=== PATIENT | female | born 1955 | race Caucasian/White ===

== ENCOUNTER 2017-04-21 17:59 | Emergency (ER) | payer OTHER ==
[2017-04-21] MEDS ORDERED: SULFAMETHOXAZOLE/TRIMETHOPRIM 800-160 MG TABLET PO ONE (19:56)
[2017-04-21] MEDS ORDERED: CEPHALEXIN 500 MG CAPSULE PO ONE (19:56)
[2017-04-21] MEDS ORDERED: HYDROCODONE/ACETAMINOPHEN 5-325 MG (6 TAB/ER DISP) PO PRN (19:56)
--- NOTE | 2017-04-21 20:00 | ER Document Report ---
ED Skin Rash/Insect Bite/Abscs - General Chief Complaint: Skin Problem Stated Complaint: POSSIBLE INFECTION ON RIGHT SIDE Time Seen by Provider: 04/21/17 18:40 Mode of Arrival: Ambulatory Information source: Patient Notes: 61-year-old female presented to ED for a abscess to her right abdomen. She states she noticed it about 3 weeks ago and has slowly grown. She states in January she noticed a mole that was "growing inside and she started to the preformer impregnated fabrics to make no comments about it. About 2 or 3 days ago this area got much better became more painful and itching. TRAVEL OUTSIDE OF THE [place] IN LAST 30 DAYS: No - HPI Patient complains to provider of: Tender/swollen area Onset: Other Onset/Duration: Gradual - See above Quality of pain: Achy, Sharp Severity: Moderate Pain Level: 3 Skin Character: Abscess Quality of rash: Itchy, Painful Identify cause: No Exacerbated by: Denies Relieved by: Denies Similar symptoms previously: Yes Recently seen / treated by doctor: No - Related Data Allergies/Adverse Reactions: No Known Allergies Allergy (Verified 04/21/17 20:06) Past Medical History - General Information source: Patient - Social History Smoking Status: Current Every Day Smoker Cigarette use (# per day): Yes - Half pack per day Chew tobacco use (# tins/day): No Smoking Education Provided: Yes - Less than 2 minutes Frequency of alcohol use: None Drug Abuse: None Occupation: [employer] Lives with: Family Family History: CAD, DM, Hyperlipidemia, Hypertension, Malignancy, Thyroid Disfunction. denies: Arthritis, COPD, CVA Patient has suicidal ideation: No Patient has homicidal ideation: No - Past Medical History Cardiac Medical History: Reports: Hx Hypercholesterolemia, Hx Hypertension Pulmonary Medical History: Reports: None EENT Medical History: Reports: None Neurological Medical History: Reports: None Endocrine Medical History: Reports: None Renal/ Medical History: Reports: None Malignancy Medical History: Reports: None GI Medical History: Reports: None Musculoskeltal Medical History: Reports None Skin Medical History: Reports Hx Cellulitis Psychiatric Medical History: Reports: None Traumatic Medical History: Reports: None Infectious Medical History: Reports: None Surgical Hx: Negative Past Surgical History: Reports: None Review of Systems - Review of Systems Constitutional: No symptoms reported EENT: No symptoms reported Cardiovascular: No symptoms reported Respiratory: No symptoms reported Gastrointestinal: No symptoms reported Genitourinary: No symptoms reported Female Genitourinary: No symptoms reported Musculoskeletal: No symptoms reported Skin: Other - Swollen red area to the right lateral abdomen Hematologic/Lymphatic: No symptoms reported Neurological/Psychological: No symptoms reported -: Yes All other systems reviewed and negative Physical Exam - Vital signs Vitals: Temp Pulse Resp BP Pulse Ox 98.0 F 60 20 173/76 H 100 04/21/17 18:15 04/21/17 18:15 04/21/17 18:15 04/21/17 18:15 04/21/17 18:15 Interpretation: Normal - General General appearance: Appears well, Alert - HEENT Head: Normocephalic, Atraumatic Eyes: Normal Pupils: PERRL - Respiratory Respiratory status: No respiratory distress Chest status: Nontender Breath sounds: Normal Chest palpation: Normal - Cardiovascular Rhythm: Regular Heart sounds: Normal auscultation Murmur: No - Abdominal Inspection: Other - Abscess to the right lateral abdomen Distension: No distension Bowel sounds: Normal Tenderness: Tender - Abscess Organomegaly: No organomegaly - Back Back: Normal, Nontender - Extremities General upper extremity: Normal inspection, Nontender, Normal color, Normal ROM , Normal temperature General lower extremity: Normal inspection, Nontender, Normal color, Normal ROM , Normal temperature, Normal weight bearing. No: Cherelle's sign - Neurological Neuro grossly intact: Yes Cognition: Normal Orientation: AAOx4 [place] Coma Scale Eye Opening: Spontaneous [place] Coma Scale Verbal: Oriented [place] Coma Scale Motor: Obeys Commands [place] Coma Scale Total: 15 Speech: Normal Motor strength normal: LUE, RUE, LLE, RLE Sensory: Normal - Psychological Associated symptoms: Normal affect, Normal mood - Skin Skin Temperature: Warm Skin Moisture: Dry Skin Color: Normal Skin irregularity: Abscess - Right lateral abdomen Location of irregularity: Abdomen Irregularity with: Swelling, Tenderness, Warmth Course - Re-evaluation Re-evalutation: 04/22/17 02:23 Abscess cleaned well with surgical scrub and open with knife large amount of purulent drainage. Wound was packed with iodoform and a sterile dressing applied. Patient instructed to remove the iodoform in 48 hours and to follow- up with the ED for any increase in pain redness or swelling. Patient was treated with Keflex and Septra and [place] dispense back and discharged home to follow-up with primary doctor. - Vital Signs Vital signs: Temp Pulse Resp BP Pulse Ox 98.3 F 57 L 18 149/62 H 98 04/21/17 20:03 04/21/17 20:03 04/21/17 20:03 04/21/17 20:03 04/21/17 20:03 Procedures - Incision and Drainage Right Lateral Abdomen Type: Simple Anesthetic type: 1% Lidocaine mL's of anesthetic: 6 Blade size: 11 I&D procedure: Betadine prep applied, Iodoform packing placed, Sterile dressing applied Incision Method: Incision made by scalpel Amount/type of drainage: Large amount of purulent drainage Discharge - Discharge Clinical Impression: abscess right upper abdomen subcutaneous Condition: Stable Disposition: HOME, SELF-CARE Instructions: Family Physicians / Practices Additional Instructions: ABSCESS: You have an abscess (boil). This a pus-forming infection, usually due to staph. Some boils may be left to drain on their own, but most require lancing. From the time the tender lump first appears, it may be three or four days before the abscess is ready to randy. Local heat and rest help at this stage of treatment. An antibiotic may prevent spread of the infection. Once the abscess is opened, packing may be placed into it. This is done so pus is not sealed inside by premature closure of the cavity. The packing will be removed at your follow-up visit or you may be advised to remove it yourself at home. Sometimes this packing must be replaced a few times during healing. The wound will heal with surprisingly little scar. Depending on the size and location of an abscess, healing can take one to four weeks. You may shower and wash the area around the incision site two or three times a day. Antibiotics may be prescribed, but are usually not necessary after an abscess has been drained. If you develop fever, chills, worsening pain, or increasing swelling in the area, call the doctor or return immediately. POST INCISION AND DRAINAGE: You have had an incision made to allow drainage of an abscess. The incision must remain open so that pus and debris can drain from the wound. If the abscess cavity is large, packing is placed. This keeps the tissues from collapsing and trapping pus inside, while the body shrinks the cavity. The packing may need to be replaced every day or two. The physician will instruct you on the packing. Keep a bulky dressing over the area. Replace it if it becomes saturated with blood or pus. Do not disturb the packing (if present). You may shower and cleanse the area with gentle soap and warm water two or three times a day. Local warmth may be soothing, and may promote faster healing. Return if you develop high fever or chills, or if you note spreading redness, increasing swelling, or increasing tenderness. remove packing in 48 hours ORAL NARCOTIC MEDICATION: You have been given a [employer] dispense pack for pain control. This medication is a narcotic. It's best taken with food, as nausea can result if taken on an empty stomach. Don't operate machinery or drive within six hours of taking this medication. Do not combine this medicine with alcohol, or with any medication which can cause sedation (such as cold tablets or sleeping pills) unless you get permission from the physician. Narcotics tend to cause constipation. If possible, drink plenty of fluids and eat a diet high in fiber and fruits. CEPHALEXIN: The antibiotic you've been prescribed is a member of the cephalosporin class. This type of antibiotic covers a wide variety of infections, including those of the skin, lungs, and urinary tract. It's useful for staph infections. This antibiotic is slightly similar to the penicillin family. In rare cases , a person who is allergic to penicillin will also be allergic to this medication. If you have had a severe allergic reaction to penicillin, and have not taken this antibiotic since that time, notify your doctor. Antibiotics which cover many germs ("broad spectrum" antibiotics) are more likely to cause diarrhea or "yeast" infections. Women prone to vaginal yeast problems may suffer an attack after taking this antibiotic. In infants, oral thrush (white spots "stuck" on the cheek) or yeast diaper rash may result. See your doctor if these problems occur. Call at once if you develop itching, hives , shortness of breath, or lightheadedness. TRIMETHOPRIM-SULFA: You have been given a prescription for trimethoprim-sulfa (TMS, Septra, Bactrim). This is a combination antibiotic of the sulfa class, often used for urinary tract infections, middle ear infections, bronchitis, shigella intestinal infection, and Pneumocystis pneumonia. TMS is usually well-tolerated. Occasional side effects include nausea and decreased appetite. Septra is not recommended for infants less than two months of age. Do not take this medication if you have experienced severe side effects or allergy to sulfa medicine. You should stop this medicine at once and contact your physician if you develop any rash, joint pain, shortness of breath, bruising, or jaundice ( yellow color in the skin), or if you develop any other new or unusual symptoms. Epsom Salt Soaks (start after packing removed) Soak the wound area in a container of warm epsom salt water. If you can't get the wound area into a bucket or thornton, use a folded towel soaked in the epsom salt solution and apply to the area. Use clean hot tap water (about the temperature of a very warm bath), mixing in about one (1) teaspoon for every pint of water. Two gallon --> 16 teaspoons Epsom Salts One gallon --> 8 teaspoons Epsom Salts Two quarts --> 4 teaspoons Epsom Salts One quart --> 2 teaspoons Epsom Salts Soak the wound for about 20 minutes while gently moving it around in the water. Repeat this four (4) times a day. FOLLOW-UP CARE: Most simple abscesses will not require a follow up visit. If you had packing placed in the abscess, remove it as instructed by the physician. If you have been referred to a physician for follow-up care, call the physicians office for an appointment as you were instructed or within the next two days. If you experience worsening or a significant change in your symptoms, return to the Emergency Department at any time for re-evaluation. Prescriptions: Cephalexin Monohydrate [Keflex 500 mg Capsule] 500 mg PO QID #20 capsule Sulfamethoxazole/Trimethoprim [Septra-Ds 800-160 mg Tablet] 1 tab PO BID #14 tablet Forms: Elevated Blood Pressure, Return to Work
[2017-04-21 20:06] VITALS: BP 149/62
== END 2017-04-21 20:14 | disposition home or self-care (01) ==
LOC: ER 17:59
PROC: 0H97XZZ Drainage of Abdomen Skin, External Approach (ICD-10-PCS; principal; 2017-04-21)
DX: L02.211 Cutaneous abscess of abdominal wall (principal); F17.210 Nicotine dependence, cigarettes, uncomplicated
CPT/HCPCS: 99283; 87070; 87205; 10060; A6266; 87075; 87077